=== PATIENT | female | born 1995 | race American Indian/Alaskan Native ===

== ENCOUNTER 2018-07-08 17:52 | Emergency (ER) | payer SELFPAY ==
[2018-07-08 18:35] VITALS: BP 106/78
[2018-07-08 19:43] LABS: HCG Qualitative,Urine Negative (Negative)
[2018-07-08 19:45] LABS: Bacteria,Urine 1+ /HPF (Negative); Bilirubin,Urine NEG (Negative); Blood,Urine NEG (Negative); Color,Urine Yellow (Yellow); Mucus,Urine 2+ /HPF; Urobilinogen,Urine < 2.0 mg/dL (<2.0)
--- NOTE | 2018-07-08 21:35 | Emergency Department Report ---
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 today got dizzy and sat down noted sweating nausea no chest pain did not actually throwup did not lose consciousness however when she rested and got up again felt dizzy and then left work patient states not sexually active refused hCG and initially however complied UA is negative for negative for UTI patient does state allergies rhinorrhea there is no chest pain or shortness of breath no back pain no headache no fever no ear pain patient denies symptoms at this time requesting lab results especially test MD Complaint: dizziness -: Gradual, days(s) (1) Timing: gradual onset Description: sense of movement History of Same: Yes History of Trauma: No Severity: mild Improves With: nothing Worsens With: exertion Associated Symptoms: ataxia, diaphoresis. denies: chest pain, confusion, cough , fever/chills, loss of appetite, malaise, rash, seizure, shortness of breath, syncope, weakness - Related Data Previous Rx's Medication Instructions Recorded Last Taken Type Cetirizine HCl [ZyrTEC] 10 mg PO DAILY 30 Days #30 capsule 07/08/18 Unknown Rx Fluticasone [Flonase] 1 spray NS QDAY #1 bottle 07/08/18 Unknown Rx diphenhydrAMINE [Benadryl CAP] 25 mg PO Q6HR PRN #30 capsule 07/08/18 Unknown Rx Allergies Allergy/AdvReac Type Severity Reaction Status Date / Time No Known Allergies Allergy Unverified 07/08/18 18:34 ED Review of Systems ROS: Stated complaint: FAINT Other details as noted in HPI Constitutional: diaphoresis. denies: chills, fever, weakness Eyes: denies: eye pain, eye discharge, vision change ENT: congestion. denies: ear pain, throat pain, hearing loss, epistaxis Respiratory: denies: cough, shortness of breath, wheezing Cardiovascular: denies: chest pain, palpitations Endocrine: no symptoms reported Gastrointestinal: denies: abdominal pain, nausea, diarrhea Genitourinary: denies: urgency, dysuria, discharge Musculoskeletal: denies: back pain, joint swelling, arthralgia Skin: denies: rash, lesions Neurological: denies: headache, weakness, numbness, paresthesias, confusion, abnormal gait, vertigo Psychiatric: denies: anxiety, depression Hematological/Lymphatic: denies: easy bleeding, easy bruising ED Past Medical Hx - Past Medical History Previous Medical History?: No - Surgical History Past Surgical History?: No - Social History Smoking Status: Current Every Day Smoker Substance Use Type: None - Medications Home Medications: Home Medications Medication Instructions Recorded Confirmed Last Taken Type Cetirizine HCl [ZyrTEC] 10 mg PO DAILY 30 Days #30 capsule 07/08/18 Unknown Rx Fluticasone [Flonase] 1 spray NS QDAY #1 bottle 07/08/18 Unknown Rx diphenhydrAMINE [Benadryl CAP] 25 mg PO Q6HR PRN #30 capsule 07/08/18 Unknown Rx ED Physical Exam - General Limitations: No Limitations General appearance: alert, in no apparent distress - Head Head exam: Present: atraumatic, normocephalic - Eye Eye exam: Present: normal appearance - ENT ENT exam: Present: mucous membranes moist - Expanded ENT Exam Expanded Ear exam: Present: normal external inspection Mouth exam: Present: normal external inspection Throat exam: Positive: normal inspection, tonsillar erythema. Negative: tonsillomegaly, tonsillar exudate, R peritonsillar mass, L peritonsillar mass - Neck Neck exam: Present: normal inspection, full ROM. Absent: tenderness, meningismus, lymphadenopathy, thyromegaly - Expanded Neck Exam Expanded Neck exam: Absent: tenderness, midline deformity, anterior neck swelling, thyroid mass, carotid bruit, tracheal deviation - Respiratory Respiratory exam: Present: normal lung sounds bilaterally. Absent: respiratory distress, wheezes, chest wall tenderness - Cardiovascular Cardiovascular Exam: Present: regular rate, normal rhythm, normal heart sounds. Absent: systolic murmur, diastolic murmur, rubs, gallop - GI/Abdominal GI/Abdominal exam: Present: soft, normal bowel sounds. Absent: tenderness, bruit, hernia - Rectal Rectal exam: Present: deferred - External exam: Present: normal external exam - Extremities Exam Extremities exam: Present: normal inspection - Back Exam Back exam: Present: normal inspection - Neurological Exam Neurological exam: Present: alert, oriented X3, CN II-XII intact, normal gait, reflexes normal. Absent: motor sensory deficit - Expanded Neurological Exam Expanded Patient oriented to: Present: person, place, time Speech: Present: fluid speech Cranial nerves: EOM's Intact: Normal, Gag Reflex: Normal, Tongue Deviation: Normal, Nystagmus: Normal, Facial Sensation: Normal Cerebellar function: Finger to Nose: Normal, Heel to [place]: Normal, Romberg: Normal Upper motor neuron: Tommy Neglect: Normal, Pronator Drift: Normal, Babinski Sign : Normal, Sensory Extinction: Normal Motor strength exam: RUE: 5, LUE: 5, RLE: 5, LLE: 5 Best Eye Response ([place]): (4) open spontaneously Best Motor Response ([place]): (6) obeys commands Best Verbal Response ([place]): (5) oriented [place] Total: 15 - Psychiatric Psychiatric exam: Present: normal affect, normal mood - Skin Skin exam: Present: warm, dry, intact, normal color. Absent: rash ED Course Vital Signs 07/08/18 07/08/18 18:28 22:00 Temperature 97.8 F Pulse Rate 81 78 Respiratory 18 16 Rate Blood Pressure 106/78 O2 Sat by Pulse 100 99 Oximetry ED Medical Decision Making - Lab Data Laboratory Tests 07/08/18 19:13 Urine Color Yellow Urine Turbidity Slightly-cloudy Urine pH 5.0 Ur Specific [place] 1.021 Urine Protein 100 mg/dl Urine Glucose (UA) Neg Urine Ketones Neg Urine Blood Neg Urine Nitrite Neg Ur Reducing Substances Not Reportable Urine Bilirubin Neg Urine Ictotest Not Reportable Urine Urobilinogen < 2.0 Ur Leukocyte Esterase Tr Urine WBC (Auto) 3.0 Urine RBC (Auto) 3.0 U Epithel Cells (Auto) 9.0 Urine Bacteria (Auto) 1+ Urine Mucus 2+ Urine HCG, Qual Negative - EKG Data EKG shows normal: sinus rhythm Rate: normal (NSR NSTEMI interp by ed attending) - EKG Data Interpretation: normal EKG - Radiology Data Radiology results: report reviewed - Medical Decision Making Symptoms improved after dinner meal patient currently tolerating by mouth intake without nausea vomiting no dizziness patient does endorse URI symptoms TMs clear bilaterally nose body clear postnasal drip pharynx mild erythema clear postnasal drip no exudate no lesions is no stridor no wheezing lungs are clear to EKG is normal no ST elevated [place] there is no chest pain gait is steady there is no neuro deficits plan Benadryl by mouth 4 times a day when necessary for dizziness, Flonase and Zyrtec daily for cold and rhinitis symptoms continue to hydrate as directed patient will follow up with PCP in 2-3 days or return the ED should symptoms worsen patient verbalizes understanding of same DC 'd to home in stable condition at this time Critical care attestation.: If time is entered above; I have spent that time in minutes in the direct care of this critically ill patient, excluding procedure time. ED Disposition Disposition: DC-01 TO HOME OR SELFCARE Is pt being admited?: No Does the pt Need Aspirin: No Condition: Good Instructions: Allergic Rhinitis (ED), Dizziness (ED) Prescriptions: Cetirizine HCl [ZyrTEC] 10 mg PO DAILY 30 Days #30 capsule diphenhydrAMINE [Benadryl CAP] 25 mg PO Q6HR PRN #30 capsule PRN Reason: dizziness sever congestion Fluticasone [Flonase] 1 spray NS QDAY #1 bottle Referrals: PRIMARY CARE, [Primary Care Provider] - 3-5 Days Forms: Work/School Release Form(ED) Time of Disposition: 21:49 <ENE MCCALL - Last Filed: 07/08/18 22:48> ED Medical Decision Making - EKG Data Rate: normal (NSR interp by ed attending - No STEMI)
== END 2018-07-08 22:00 | disposition home or self-care (01) ==
LOC: ED 17:52
DX: J35.8 Other chronic diseases of tonsils and adenoids (principal); F17.200 Nicotine dependence, unspecified, uncomplicated
CPT/HCPCS: 81001; 81025; 93005; 93010; 99283